=== PATIENT | male | born 1975 | race African-American/Black ===

== ENCOUNTER → 2017-05-07 | Outpatient (CLI) | payer BC ==
[2017-05-07 13:19] LABS: Albumin 3.9 g/dL (3.4-5.0); BUN/Creatinine Ratio 11.8; Calcium 9.7 mg/dL (8.5-10.1); Potassium 3.5 mmol/L (3.5-5.1); Total Protein 7.6 g/dL (6.4-8.2)
== END | disposition home or self-care (01) ==
LOC: LAB 10:58
PROVIDERS: ATTEND Internal Medicine Cardiovascular Disease
DX: E78.00 Pure hypercholesterolemia, unspecified (principal); I10 Essential (primary) hypertension; E11.9 Type 2 diabetes mellitus without complications
CPT/HCPCS: 36415; 80053; 80061; 83036

== ENCOUNTER 2018-08-05 23:14 | Inpatient (IN) | payer BC ==
[~2018-08-05] VITALS: Ht 185.4 cm; Wt 142.9 kg
[2018-08-06] VITALS (7 sets, daily range): BP systolic 145–163; BP diastolic 91–101
[2018-08-06 00:06] LABS: Basophils # (auto) 0.1 uL; Basophils % (auto) 1.2 % (0.0-2.0); Eosinophils # (auto) 0.1 uL; Eosinophils % (auto) 1.9 % (0.0-7.0); Hematocrit 39.5 % (41.0-53.0); Hemoglobin 12.5 g/dL (13.5-17.5); Lymphocytes # (auto) 0.8 uL; Lymphocytes % (auto) 10.3 % (10.0-50.0); Mean Corpuscular Hemoglobin 28.5 pg (28.0-32.0); Mean Corpuscular Hgb Conc. 31.7 g/dL (32.0-36.0); Mean Corpuscular Volume 89.9 fL (80.0-100.0); Monocytes # (auto) 0.8 uL; Monocytes % (auto) 10.8 % (0.0-12.0); Neutrophils # (auto) 5.9 uL; Neutrophils % (auto) 75.8 % (37.0-80.0); Nucleated Red Blood Cells % 0.1 %; Platelet Count (auto) 249 10^3/uL (140-450); Red Blood Cells 4.39 10^6/uL (4.5-5.90); Red Cell Distribution Width 16.6 % (11.8-14.3); White Blood Cell 7.8 10^3/uL (4.4-10.8)
[2018-08-06 00:23] LABS: Albumin 3.3 g/dL (3.4-5.0); Calcium 8.8 mg/dL (8.5-10.1); Potassium 4.1 mmol/L (3.5-5.1)
[2018-08-06 00:43] LABS: Bilirubin, Total 0.9 mg/dL (0.2-1.0); Total Protein 7.1 g/dL (6.4-8.2)
[2018-08-06] MEDS ORDERED: FUROSEMIDE 40 MG/4 ML VIAL IV ONE (03:45)
[2018-08-06 05:46] LABS: Urine Bacteria FEW /hpf (None Seen); Urine Blood Negative /uL (Negative); Urine Hyaline Cast FEW /lpf (0 - 2); Urine Specific Gravity 1.012 (1.001-1.035); Urine WBC 32 /hpf (0 - 3)
[2018-08-06] MEDS ORDERED: METF-370 PO (05:58)
[2018-08-06] MEDS ORDERED: LOSA-49 PO (05:58)
[2018-08-06] MEDS ORDERED: POTA10TA51 PO (05:58)
[2018-08-06] MEDS ORDERED: FURO40TA4 PO (05:58)
[2018-08-06] MEDS ORDERED: ONDANSETRON HCL 4 MG/2 ML VIAL IV PRN (07:00)
[2018-08-06] MEDS ORDERED: ALBUTEROL SULF 2.5 MG/0.5ML(0.5%) NEB SOLN NEB PRN (07:00)
[2018-08-06] MEDS ORDERED: ACETAMINOPHEN 500 MG TAB PO PRN (07:00)
[2018-08-06] MEDS ORDERED: DEXTROSE (50%) 50ML SYRG IV PRN (08:30)
[2018-08-06] MEDS ORDERED: INFLUENZA QUAD 2018-2019 0.5 ML SYRG IM ONE (09:00)
[2018-08-06] MEDS ORDERED: ALBU1SYP PO (09:23)
[2018-08-06] MEDS ORDERED: FLU220IH INH (09:23)
[2018-08-06] MEDS ORDERED: METOLAZONE 5 MG TAB PO ONE (09:30)
[2018-08-06] MEDS: cefTRIAXone 1GM/50ML D5W 50 ML IV SCH (10:20)
[2018-08-06] MEDS: LOSARTAN POTASSIUM 50 MG TAB PO SCH (10:23)
[2018-08-06] MEDS: POTASSIUM CHL 20 Meq TABLET PO SCH ×2 (10:23→22:06)
[2018-08-06] MEDS ORDERED: InsuLIN REG 1unit/0.01ml Soln (100units/ml) SC SCH (11:30)
[2018-08-06] MEDS: ACCU-CHEK COMFORT CURVE STRIP VI SCH ×3 (13:52→21:51)
[2018-08-06] MEDS: HYDROcodone-ACET 5/325MG TAB PO PRN ×2 (16:25→22:06)
[2018-08-06] MEDS: metFORMIN HYDROCHLORIDE 500 MG TAB PO SCH (18:46)
[2018-08-06] MEDS: SPIRONOLACTONE 25 MG TAB PO SCH (18:46)
[2018-08-06] MEDS: FUROSEMIDE 40 MG/4 ML VIAL IV SCH (18:46)
[2018-08-06] MEDS ORDERED: diphenhdrAMINE HCL 25 MG CAP PO ONE (22:00)
[2018-08-07] MEDS: HYDROcodone-ACET 5/325MG TAB PO PRN ×3 (03:43→21:42)
[2018-08-07] MEDS: FUROSEMIDE 40 MG/4 ML VIAL IV SCH ×2 (05:42→17:35)
[2018-08-07] MEDS: SPIRONOLACTONE 25 MG TAB PO SCH ×2 (05:43→17:35)
[2018-08-07 05:51] VITALS: BP 159/89
[2018-08-07] MEDS: ACCU-CHEK COMFORT CURVE STRIP VI SCH ×4 (06:33→21:40)
[2018-08-07] MEDS: cefTRIAXone 1GM/50ML D5W 50 ML IV SCH (08:29)
[2018-08-07] MEDS: metFORMIN HYDROCHLORIDE 500 MG TAB PO SCH ×2 (08:29→17:35)
[2018-08-07 09:13] VITALS: BP 140/78
[2018-08-07] MEDS: LOSARTAN POTASSIUM 50 MG TAB PO SCH (09:30)
[2018-08-07] MEDS: POTASSIUM CHL 20 Meq TABLET PO SCH ×2 (09:32→21:41)
[2018-08-07] MEDS: METOLAZONE 5 MG TAB PO SCH (09:32)
[2018-08-07 11:20] VITALS: BP 123/87
[2018-08-07 16:50] VITALS: BP 147/98
[2018-08-07 21:38] VITALS: BP 141/95
[2018-08-08 05:03] VITALS: BP 150/98
[2018-08-08] MEDS: FUROSEMIDE 40 MG/4 ML VIAL IV SCH ×2 (06:15→18:09)
[2018-08-08] MEDS: SPIRONOLACTONE 25 MG TAB PO SCH ×2 (06:16→18:10)
[2018-08-08] MEDS: ACCU-CHEK COMFORT CURVE STRIP VI SCH ×4 (06:17→22:41)
[2018-08-08] MEDS: cefTRIAXone 1GM/50ML D5W 50 ML IV SCH (08:26)
[2018-08-08] MEDS: metFORMIN HYDROCHLORIDE 500 MG TAB PO SCH ×2 (08:26→18:10)
[2018-08-08 08:50] VITALS: BP 138/89
[2018-08-08] MEDS: LOSARTAN POTASSIUM 50 MG TAB PO SCH (09:42)
[2018-08-08] MEDS: POTASSIUM CHL 20 Meq TABLET PO SCH ×2 (09:43→22:40)
[2018-08-08] MEDS: METOLAZONE 5 MG TAB PO SCH (09:43)
[2018-08-08 11:14] LABS: Basophils # (auto) 0.1 uL; Basophils % (auto) 1.1 % (0.0-2.0); Eosinophils # (auto) 0.1 uL; Eosinophils % (auto) 1.9 % (0.0-7.0); Hematocrit 39.3 % (41.0-53.0); Hemoglobin 12.4 g/dL (13.5-17.5); Lymphocytes # (auto) 0.7 uL; Lymphocytes % (auto) 9.5 % (10.0-50.0); Mean Corpuscular Hemoglobin 28.3 pg (28.0-32.0); Mean Corpuscular Hgb Conc. 31.5 g/dL (32.0-36.0); Mean Corpuscular Volume 89.9 fL (80.0-100.0); Monocytes # (auto) 0.7 uL; Monocytes % (auto) 8.7 % (0.0-12.0); Neutrophils % (auto) 78.8 % (37.0-80.0); Platelet Count (auto) 232 10^3/uL (140-450); Red Blood Cells 4.37 10^6/uL (4.5-5.90); Red Cell Distribution Width 16.5 % (11.8-14.3); White Blood Cell 7.6 10^3/uL (4.4-10.8)
[2018-08-08 11:42] LABS: Albumin 3.2 g/dL (3.4-5.0); Calcium 9.3 mg/dL (8.5-10.1); Potassium 3.9 mmol/L (3.5-5.1)
[2018-08-08 11:45] LABS: BUN/Creatinine Ratio 13.4; Bilirubin, Total 0.9 mg/dL (0.2-1.0)
[2018-08-08 12:01] VITALS: BP 144/91
[2018-08-08] MEDS: HYDROcodone-ACET 5/325MG TAB PO PRN ×2 (16:01→22:45)
[2018-08-08 16:27] VITALS: BP 138/82
[2018-08-08 20:57] LABS: Alcohol, Urine < 3.0 mg/dL (0-5); Amphetamine Screen, Urine NEGATIVE (NEGATIVE); Barbiturate Scree,Urine NEGATIVE (NEGATIVE); Benzodiazephine Screen, Urine NEGATIVE (NEGATIVE); Cannabinoid Screen, Urine NEGATIVE (NEGATIVE); Cocaine Screen, Urine NEGATIVE (NEGATIVE); Opiate Scree,Urine NEGATIVE (NEGATIVE); Phencyclidine Screen, Urine NEGATIVE (NEGATIVE)
[2018-08-08 22:00] VITALS: BP 141/82
[2018-08-08] MEDS ORDERED: TEMAZEPAM 15 MG CAP PO ONE (22:30)
[2018-08-08] MEDS: SACUBITRIL-VALSARTAN 24mg/26mg TAB PO SCH (22:40)
[2018-08-09 05:52] VITALS: BP 143/85
[2018-08-09 06:07] LABS: Basophils # (auto) 0 uL; Basophils % (auto) 0.6 % (0.0-2.0); Eosinophils # (auto) 0.2 uL; Eosinophils % (auto) 2.8 % (0.0-7.0); Hematocrit 38.3 % (41.0-53.0); Hemoglobin 12.3 g/dL (13.5-17.5); Lymphocytes # (auto) 0.9 uL; Lymphocytes % (auto) 11.3 % (10.0-50.0); Mean Corpuscular Hemoglobin 28.7 pg (28.0-32.0); Mean Corpuscular Volume 89.6 fL (80.0-100.0); Monocytes # (auto) 0.8 uL; Neutrophils # (auto) 5.9 uL; Neutrophils % (auto) 75.3 % (37.0-80.0); Nucleated Red Blood Cells % 0.1 %; Platelet Count (auto) 231 10^3/uL (140-450); Red Blood Cells 4.27 10^6/uL (4.5-5.90); Red Cell Distribution Width 16.2 % (11.8-14.3); White Blood Cell 7.9 10^3/uL (4.4-10.8)
[2018-08-09] MEDS: FUROSEMIDE 40 MG/4 ML VIAL IV SCH ×2 (06:19→18:00)
[2018-08-09] MEDS: SPIRONOLACTONE 25 MG TAB PO SCH ×2 (06:19→17:58)
[2018-08-09] MEDS: ACCU-CHEK COMFORT CURVE STRIP VI SCH ×4 (06:20→22:26)
[2018-08-09 06:32] LABS: Potassium 3.7 mmol/L (3.5-5.1)
[2018-08-09 06:39] LABS: Albumin 3.1 g/dL (3.4-5.0); BUN/Creatinine Ratio 13.9; Bilirubin, Total 0.8 mg/dL (0.2-1.0); Calcium 9.3 mg/dL (8.5-10.1); Total Protein 6.8 g/dL (6.4-8.2)
[2018-08-09] MEDS: cefTRIAXone 1GM/50ML D5W 50 ML IV SCH (08:29)
[2018-08-09] MEDS: metFORMIN HYDROCHLORIDE 500 MG TAB PO SCH ×2 (08:29→17:58)
[2018-08-09 09:00] VITALS: BP 140/89
[2018-08-09] MEDS: POTASSIUM CHL 20 Meq TABLET PO SCH ×2 (10:12→22:25)
[2018-08-09] MEDS: METOLAZONE 5 MG TAB PO SCH (10:12)
[2018-08-09] MEDS: SACUBITRIL-VALSARTAN 24mg/26mg TAB PO SCH ×2 (10:13→22:25)
[2018-08-09] MEDS: HYDROcodone-ACET 5/325MG TAB PO PRN ×2 (10:18→20:51)
[2018-08-09 13:00] VITALS: BP 142/72
[2018-08-09 16:57] VITALS: BP 139/89
[2018-08-09 21:41] VITALS: BP 139/89
[2018-08-09 22:00] VITALS: BP 146/86
[2018-08-10 05:00] VITALS: BP 141/78
[2018-08-10] MEDS: HYDROcodone-ACET 5/325MG TAB PO PRN ×2 (06:45→19:11)
[2018-08-10] MEDS: FUROSEMIDE 40 MG/4 ML VIAL IV SCH ×2 (06:49→18:15)
[2018-08-10] MEDS: SPIRONOLACTONE 25 MG TAB PO SCH ×2 (06:49→18:14)
[2018-08-10] MEDS: ACCU-CHEK COMFORT CURVE STRIP VI SCH ×4 (06:49→22:27)
[2018-08-10] MEDS: metFORMIN HYDROCHLORIDE 500 MG TAB PO SCH ×2 (08:30→18:15)
[2018-08-10] MEDS: cefTRIAXone 1GM/50ML D5W 50 ML IV SCH (08:52)
[2018-08-10 09:45] VITALS: BP 130/79
[2018-08-10 09:51] LABS: Cholesterol 122 mg/dL (< 200)
[2018-08-10 09:53] LABS: HDL Cholesterol 32 mg/dL (40-59); LDL Cholesterol 83 mg/dL (< 100); Triglycerides 93 mg/dL (< 150)
[2018-08-10] MEDS: SACUBITRIL-VALSARTAN 24mg/26mg TAB PO SCH ×2 (10:37→22:17)
[2018-08-10] MEDS: METOLAZONE 5 MG TAB PO SCH (10:38)
[2018-08-10] MEDS: POTASSIUM CHL 20 Meq TABLET PO SCH ×2 (10:39→22:17)
[2018-08-10 14:10] VITALS: BP 138/89
[2018-08-10 17:07] VITALS: BP 136/92
[2018-08-10 22:00] VITALS: BP 137/88
[2018-08-10] MEDS: ACETYLCYSTEINE ORAL for CIN 20%(200MG/ML) 4ML PO SCH (22:17)
[2018-08-11 05:00] VITALS: BP 118/65
[2018-08-11 05:20] LABS: Basophils # (auto) 0.1 uL; Basophils % (auto) 0.9 % (0.0-2.0); Eosinophils # (auto) 0.2 uL; Eosinophils % (auto) 2.4 % (0.0-7.0); Hemoglobin 13.4 g/dL (13.5-17.5); Lymphocytes # (auto) 1.1 uL; Lymphocytes % (auto) 11.2 % (10.0-50.0); Mean Corpuscular Hemoglobin 28.1 pg (28.0-32.0); Mean Corpuscular Hgb Conc. 31.9 g/dL (32.0-36.0); Mean Corpuscular Volume 88.1 fL (80.0-100.0); Monocytes # (auto) 1.1 uL; Monocytes % (auto) 11.4 % (0.0-12.0); Neutrophils # (auto) 7.1 uL; Neutrophils % (auto) 74.1 % (37.0-80.0); Platelet Count (auto) 260 10^3/uL (140-450); Red Blood Cells 4.77 10^6/uL (4.5-5.90); Red Cell Distribution Width 16.1 % (11.8-14.3); White Blood Cell 9.6 10^3/uL (4.4-10.8)
[2018-08-11 05:47] LABS: Potassium 3.9 mmol/L (3.5-5.1)
[2018-08-11 05:51] LABS: BUN/Creatinine Ratio 12.3; Bilirubin, Total 0.9 mg/dL (0.2-1.0); Calcium 9.4 mg/dL (8.5-10.1); Total Protein 6.8 g/dL (6.4-8.2)
[2018-08-11] MEDS: FUROSEMIDE 40 MG/4 ML VIAL IV SCH (06:53)
[2018-08-11] MEDS: ACCU-CHEK COMFORT CURVE STRIP VI SCH ×4 (06:54→22:24)
[2018-08-11] MEDS: SPIRONOLACTONE 25 MG TAB PO SCH (06:54)
[2018-08-11] MEDS: HYDROcodone-ACET 5/325MG TAB PO PRN ×3 (06:54→23:02)
[2018-08-11 07:13] LABS: Protein, Urine 8.1 mg/dL (0.0-11.9)
[2018-08-11] MEDS: metFORMIN HYDROCHLORIDE 500 MG TAB PO SCH ×2 (08:19→18:41)
[2018-08-11] MEDS ORDERED: FUROSEMIDE 40 MG/4 ML VIAL IV ONE (08:30)
[2018-08-11] MEDS: SACUBITRIL-VALSARTAN 24mg/26mg TAB PO SCH ×2 (09:28→22:24)
[2018-08-11] MEDS: POTASSIUM CHL 20 Meq TABLET PO SCH ×2 (09:28→22:24)
[2018-08-11] MEDS: cefTRIAXone 1GM/50ML D5W 50 ML IV SCH (09:32)
[2018-08-11 10:49] VITALS: BP 133/85
[2018-08-11] MEDS: ACETYLCYSTEINE ORAL for CIN 20%(200MG/ML) 4ML PO SCH ×2 (11:21→22:24)
[2018-08-11 13:34] VITALS: BP 120/70
[2018-08-11 17:35] VITALS: BP 137/79
[2018-08-11 21:30] VITALS: BP 133/71
[2018-08-12 05:00] VITALS: BP 122/68
[2018-08-12] MEDS: HYDROcodone-ACET 5/325MG TAB PO PRN ×2 (05:30→17:20)
[2018-08-12] MEDS ORDERED: SODIUM CHLORIDE 0.9% 750 ML IV ONE (05:45)
[2018-08-12 05:56] LABS: Basophils # (auto) 0.1 uL; Basophils % (auto) 0.9 % (0.0-2.0); Eosinophils # (auto) 0.2 uL; Eosinophils % (auto) 2.7 % (0.0-7.0); Hematocrit 42.8 % (41.0-53.0); Hemoglobin 13.9 g/dL (13.5-17.5); Lymphocytes % (auto) 11.6 % (10.0-50.0); Mean Corpuscular Hemoglobin 28.6 pg (28.0-32.0); Mean Corpuscular Hgb Conc. 32.5 g/dL (32.0-36.0); Monocytes # (auto) 0.9 uL; Monocytes % (auto) 10.3 % (0.0-12.0); Neutrophils # (auto) 6.5 uL; Neutrophils % (auto) 74.5 % (37.0-80.0); Platelet Count (auto) 272 10^3/uL (140-450); Red Blood Cells 4.87 10^6/uL (4.5-5.90); Red Cell Distribution Width 16.4 % (11.8-14.3); White Blood Cell 8.7 10^3/uL (4.4-10.8)
[2018-08-12 06:12] LABS: INR 1.14 (0.9-1.15); Partial Thromboplastin Time 26.8 sec (23.78-33.04); Prothrombin Time 12.1 sec (9.27-12.13)
[2018-08-12 06:16] LABS: Albumin 3.2 g/dL (3.4-5.0); BUN/Creatinine Ratio 11.1; Calcium 9.6 mg/dL (8.5-10.1); Potassium 3.9 mmol/L (3.5-5.1)
[2018-08-12 06:18] LABS: Bilirubin, Total 1.1 mg/dL (0.2-1.0); Total Protein 7.4 g/dL (6.4-8.2)
[2018-08-12] MEDS: ACCU-CHEK COMFORT CURVE STRIP VI SCH ×4 (06:54→21:43)
[2018-08-12 07:30] VITALS: BP 134/91
[2018-08-12] MEDS: metFORMIN HYDROCHLORIDE 500 MG TAB PO SCH ×2 (08:00→16:49)
[2018-08-12] MEDS ORDERED: IODIXANOL 320MG/ML 100ML BTL IV ONE (09:04)
[2018-08-12] MEDS ORDERED: LIDOCAINE 2%HCL (LOCAL ANESTH.) INJ 20ML MDV ONE (09:04)
[2018-08-12] MEDS ORDERED: fentaNYL CITRATE 100 MCG/2 ML VL ONE (09:17)
[2018-08-12] MEDS ORDERED: SODIUM CHL 0.9% 0 ML ONE (09:17)
[2018-08-12] MEDS ORDERED: ANGIOMAX 250 MG VIAL IV ONE (09:17)
[2018-08-12] MEDS ORDERED: MIDAZOLAM HCL 1MG/1ML-2 ML VIAL ONE (09:17)
[2018-08-12] MEDS: SACUBITRIL-VALSARTAN 24mg/26mg TAB PO SCH ×2 (12:07→21:43)
[2018-08-12] MEDS: POTASSIUM CHL 20 Meq TABLET PO SCH ×2 (12:07→21:43)
[2018-08-12] MEDS: ACETYLCYSTEINE ORAL for CIN 20%(200MG/ML) 4ML PO SCH (12:08)
[2018-08-12] MEDS: cefTRIAXone 1GM/50ML D5W 50 ML IV SCH (12:38)
[2018-08-12 13:00] VITALS: BP 138/83
[2018-08-12 17:19] VITALS: BP 126/71
[2018-08-12] MEDS: FUROSEMIDE 20 MG TAB PO SCH (17:19)
[2018-08-12 22:00] VITALS: BP 133/82
[2018-08-12 23:02] VITALS: BP 133/82
[2018-08-13 05:00] VITALS: BP 120/76
[2018-08-13] MEDS: ACCU-CHEK COMFORT CURVE STRIP VI SCH ×2 (05:54→11:30)
[2018-08-13] MEDS: FUROSEMIDE 20 MG TAB PO SCH (05:54)
[2018-08-13] MEDS: metFORMIN HYDROCHLORIDE 500 MG TAB PO SCH (08:00)
[2018-08-13 08:30] VITALS: BP 129/90
[2018-08-13 09:00] VITALS: BP 129/90
[2018-08-13] MEDS: cefTRIAXone 1GM/50ML D5W 50 ML IV SCH (09:00)
[2018-08-13] MEDS: POTASSIUM CHL 20 Meq TABLET PO SCH (09:17)
[2018-08-13] MEDS: SACUBITRIL-VALSARTAN 24mg/26mg TAB PO SCH (09:17)
[2018-08-13] MEDS ORDERED: SPIRONOLACTONE 25 MG TAB PO SCH (10:00)
[2018-08-13 12:16] VITALS: BP 129/90
== END 2018-08-13 14:42 | disposition home or self-care (01) | DRG 280 ==
LOC: ER 23:15 → TELE 08-06 07:05 → TELE-WESTW 08-06 08:30
PROVIDERS: ADMIT Nurse Practitioner Family; ATTEND Family Medicine
PROC: 4A023N8 Measurement of Cardiac Sampling and Pressure, Bilateral, Percutaneous Approach (ICD-10-PCS; principal; 2018-08-12)
PROC: B2111ZZ Fluoroscopy of Multiple Coronary Arteries using Low Osmolar Contrast (ICD-10-PCS; 2018-08-12)
PROC: B2151ZZ Fluoroscopy of Left Heart using Low Osmolar Contrast (ICD-10-PCS; 2018-08-12)
DX: I21.4 Non-ST elevation (NSTEMI) myocardial infarction (principal); N17.0 Acute kidney failure with tubular necrosis; I50.43 Acute on chronic combined systolic (congestive) and diastolic (congestive) heart failure; I13.0 Hypertensive heart and chronic kidney disease with heart failure and stage 1 through stage 4 chronic kidney disease, or unspecified chronic kidney disease; Z68.41 Body mass index [BMI] 40.0-44.9, adult; N39.0 Urinary tract infection, site not specified; N04.9 Nephrotic syndrome with unspecified morphologic changes; L97.829 Non-pressure chronic ulcer of other part of left lower leg with unspecified severity; L97.819 Non-pressure chronic ulcer of other part of right lower leg with unspecified severity; I42.9 Cardiomyopathy, unspecified; E66.01 Morbid (severe) obesity due to excess calories; E11.22 Type 2 diabetes mellitus with diabetic chronic kidney disease; E11.21 Type 2 diabetes mellitus with diabetic nephropathy; E11.622 Type 2 diabetes mellitus with other skin ulcer; D64.9 Anemia, unspecified; J45.909 Unspecified asthma, uncomplicated; E88.09 Other disorders of plasma-protein metabolism, not elsewhere classified; N18.3 Chronic kidney disease, stage 3 (moderate); Z80.0 Family history of malignant neoplasm of digestive organs; Z79.84 Long term (current) use of oral hypoglycemic drugs
CPT/HCPCS: 36415; 71046; 74176; 80053; 80061; 80307; 81001; 82570; 82962; 83036; 83880; 84156; 84300; 84443; 84484; 85025; 85610; 85730; 86850; 86900; 86901; 87086; 93306; 93926; 93970; 94640; 96365; 96375; 99152; A6257; C1751; G0378; J0696; J1815; J2250; Q9967

== ENCOUNTER → 2019-01-22 | Outpatient (CLI) | payer OTHER ==
[~2019-01-22] MED LIST: ALBU1SYP PO; FLU220IH INH; FURO40TA4 PO; LOSA-49 PO; METF-370 PO; POTA10TA51 PO
== END | disposition home or self-care (01) ==
LOC: XYW 10:14
PROVIDERS: ATTEND Internal Medicine
DX: I07.1 Rheumatic tricuspid insufficiency (principal); I42.9 Cardiomyopathy, unspecified
CPT/HCPCS: 93306